=== PATIENT | female | born 1965 | race Caucasian/White ===

== ENCOUNTER 2016-09-15 09:35 | Emergency (ER) | payer OTHER ==
[2016-09-15 09:45] VITALS: BP 137/84
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
[2016-09-15] MEDS ORDERED: NAPROSYN500 M1 PO (12:57)
[2016-09-15] MEDS ORDERED: CYCLOBENZAPRINE5 M2 PO (12:57)
== END 2016-09-15 13:55 ==
LOC: ERH 09:35
DX: M54.2 Cervicalgia (principal); V89.2XXA Person injured in unspecified motor-vehicle accident, traffic, initial encounter